=== PATIENT | male | born 1985 | race Caucasian/White ===

== ENCOUNTER 2018-01-30 13:21 | Emergency (ER) | payer OTHER ==
[~2018-01-30] VITALS: Ht 172.7 cm; Wt 104.3 kg
== END 2018-01-30 13:39 | disposition home or self-care (01) ==
LOC: ED 13:21
DX: S69.92XA Unspecified injury of left wrist, hand and finger(s), initial encounter (principal); W20.8XXA Other cause of strike by thrown, projected or falling object, initial encounter; Y92.89 Other specified places as the place of occurrence of the external cause; Y99.0 Civilian activity done for income or pay

== ENCOUNTER 2018-06-19 11:56 | Emergency (ER) | payer OTHER ==
[~2018-06-19] VITALS: Ht 172.7 cm; Wt 104.3 kg
[2018-06-19] MEDS ORDERED: IBUPROFEN800 MG PO (12:59)
== END 2018-06-19 13:10 | disposition home or self-care (01) ==
LOC: ED 11:56
DX: S82.122A Displaced fracture of lateral condyle of left tibia, initial encounter for closed fracture (principal); F17.200 Nicotine dependence, unspecified, uncomplicated; W10.9XXA Fall (on) (from) unspecified stairs and steps, initial encounter
CPT/HCPCS: 73560; 99283-25

== ENCOUNTER 2024-03-12 12:45 | Emergency (ER) | payer OTHER ==
[~2024-03-12] VITALS: Ht 172.7 cm; Wt 102.0 kg
[~2024-03-12 12:45] MED LIST: IBUPROFEN800 MG PO
[2024-03-12 13:42] LABS: BILIRUBIN, URINE NEGATIVE (negative); BLOOD/HGB, URINE NEGATIVE (Negative); KETONE, URINE NEGATIVE (Negative); LEUK ESTERASE, URINE NEGATIVE (negative); NITRITE, URINE NEGATIVE (negative); PH, URINE 5.5 (5-7)
[2024-03-12] MEDS ORDERED: TRIMETHOPRIM/SULFAMETHOXAZOLE 1 EA TAB PO ONE (14:15)
[2024-03-12] MEDS ORDERED: IBUPROFEN 600 MG TAB PO ONE (14:15)
[2024-03-12] MEDS ORDERED: BACTRIM DS TAB1 EACH PO (14:16)
[2024-03-12 14:22] VITALS: BP 125/64
== END 2024-03-12 14:24 | disposition home or self-care (01) ==
LOC: ED 12:45
PROVIDERS: Emergency Medicine
DX: N45.1 Epididymitis (principal); F17.200 Nicotine dependence, unspecified, uncomplicated; Z98.52 Vasectomy status
CPT/HCPCS: 76870; 81003; 99284; A9270